=== PATIENT | female | born 1965 | race Caucasian/White ===

== ENCOUNTER 2018-01-22 11:23 | Day surgery (SDC) | payer OTHER ==
[2018-01-18 10:23] VITALS: BMI 18.1
--- NOTE | 2018-01-21 08:51 | HP ---
Admitting History and Physical - Primary Care Physician PCP: Hailee Zimmer - Admission Chief Complaint: right breast LCIS History of Present Illness: 52 yo female was noted to have left breast calcifications and a new right .7 cm mass for which an US core bx was being recommended. The US core bx done 2017 was c/w LCIS. During the biopsy, a clip was not placed but a repeat US done 12/06/2017 was able to re identify the lesion. Patient is presenting for right breast exc bx with NL. History Source: Patient Limitations to Obtaining History: No Limitations - Past Medical History ...LMP Comment: 2016 ...: No Additional Past Medical History: insomnia herpes - Past Surgical History Additional Past Surgical History: Knee surgery sec to MCL repair at 16 - Smoking History Smoking history: Never smoked Have you smoked in the past 12 months: No Aproximately how many cigarettes per day: 0 - Alcohol/Substance Use Hx Alcohol Use: Yes (SEVERAL TIMES PER WEEK) Home Medications - Allergies Allergies/Adverse Reactions: Allergies Allergy/AdvReac Type Severity Reaction Status Date / Time No Known Allergies Allergy Verified 01/18/18 10:16 - Home Medications Home Medications: Ambulatory Orders Clonazepam [Klonopin] 1 mg PO HS 01/18/18 Multivitamin [Multiple Vitamins] 1 each PO DAILY 01/18/18 [place]-3 Fatty Acids/Fish Oil [Fish Oil 1,000 mg Capsule] 1 each PO DAILY Family Disease History - Family Disease History Other Family History: maternal aunt-pancreatic cancer at 70 Review of Systems - Review of Systems Constitutional: reports: No Symptoms Cardiovascular: reports: No Symptoms Respiratory: reports: No Symptoms Physical Examination Constitutional: Yes: Well Nourished Breast(s): Yes: Other (Breasts are symmetrical, dense and nodular without suspicious masses.) Problem List - Problems (1) Lobular carcinoma in situ (LCIS) of right breast Code(s): D05.01 - LOBULAR CARCINOMA IN SITU OF RIGHT BREAST Assessment/Plan Plan: Right breast wide excision with NL
[2018-01-22 12:00] VITALS: TEMP 97.6
[2018-01-22] MEDS ORDERED: LIDOCAINE HCL 1%, 10 MG/ML (20ML VIAL) ONE (14:40)
[2018-01-22] MEDS ORDERED: BUPIVACAINE HCL/PF 2.5 MG/ML - 30 ML VIAL IJ ONE (15:24)
[2018-01-22] MEDS ORDERED: ONDANSETRON 4 MG/2 ML VIAL IVPUSH PRN ×2 (15:55→15:57)
[2018-01-22] MEDS ORDERED: PROMETHAZINE HCL 25 MG/1 ML VIAL IVPUSH PRN (15:57)
[2018-01-22] MEDS ORDERED: oxyCODONE HCL 5 MG TABLET PO PRN ×2 (15:57)
[2018-01-22] MEDS ORDERED: DEXTROSE 5%-0.45% SALINE 1,000 ML IV SCH (16:00)
[2018-01-22 16:38] VITALS: BP 100/63; PULSE 54
[2018-01-22] MEDS ORDERED: KETOROLAC TROMETHAMINE 30 MG/1 ML VIAL IVPUSH ONE (16:45)
--- NOTE | 2018-01-22 20:29 | OP ---
DATE OF OPERATION: 01/22/2018 PREOPERATIVE DIAGNOSIS: Right breast atypia. POSTOPERATIVE DIAGNOSIS: Right breast atypia. PROCEDURE: Right breast wide excision with needle localization. SURGEON: Hailee Zimmer MD LUMBER CHECKER: EPI Wood ANESTHESIA: General. ANESTHESIOLOGIST: Nate Mendoza MD SPECIMEN: Right breast tissue. ESTIMATED BLOOD LOSS: Minimal. DRAINS: None. INDICATION FOR PROCEDURE: The patient is a 52-year-old woman who had a mammogram showing dense breast. Ultrasound showed a new 7-mm mass in the right breast at 8 o'clock. Ultrasound-guided biopsy showed LCIS. Excision was recommended. She is going to the operating room for the procedure. The procedure, risks and complications were discussed with her prior to surgery. The patient was taken to breast imaging, where the mass in the right breast was localized. She was then taken to the ambulatory surgical unit. Informed consent was obtained. The right breast was marked with a marker. DESCRIPTION: She was taken to the operating room and placed on the operating table in the supine position. She was sedated. The breast was infiltrated with 1% lidocaine. The patient was somewhat agitated so the procedure was converted to general anesthesia with a laryngeal airway. An incision was made at the periareolar border. The incision was deepened and the tip of the needle was palpated. The needle was grasped with a clamp and the tissue around the needle was from the surrounding breast parenchyma. The needle was disassembled and the specimen was removed. It was labeled with a long lateral and a short superior stitch. The specimen was then placed in formalin and sent to Pathology. The wound was inspected for hemostasis. Once hemostasis was satisfactory, the incision was infiltrated with 0.25% Marcaine. The deep tissue was approximated with interrupted sutures of 3-0 Vicryl. The dermis was closed with interrupted sutures of 3-0 Vicryl. The skin was closed with a running subcuticular closure of 4-0 Monocryl. The wound was cleaned and dressed with Steri-Strips and a sterile gauze dressing. It was covered with gauze and Tegaderm. A surgical bra was then placed. The patient was awakened and taken to the PACU in satisfactory condition. Cindy [id number]
--- NOTE | 2018-01-25 16:48 | PATH ---
Surgical Pathology Report Patient Name: DENNIS ARGUETA [facility]. Rec. #: [id number] /Age/Gender: 1965 (Age: 52) / F Account: [id number] Location: PENDING SALE TO [facility] Taken: 01/22/2018 Received: 01/22/2018 Reported: 01/25/2018 Physicians: Hailee Zimmer M.D. Specimen(s) Received BREAST MASS Clinical History None given Final Diagnosis BREAST, RIGHT, WIDE EXCISION: LOBULAR CARCINOMA IN SITU (LCIS), CLASSICAL TYPE. PROLIFERATIVE FIBROCYSTIC CHANGES INCLUDING STROMAL FIBROSIS, MICROCYSTS, CYSTIC APOCRINE METAPLASIA, SCLEROSING ADENOSIS, USUAL DUCTAL HYPERPLASIA, AND COLUMNAR CELL CHANGES. Comment: Immunohistochemical stains performed and interpreted at [facility] show the tumor is negative for E-Cadherin stain, supportive of lobular phenotype. Myoepithelial markers (smooth muscle myosin heavy chain and p63) are positive within the areas of sclerosing adenosis. Electronically Signed Fadia Roman M.D. Gross Description Received fresh labeled "right breast wide excision," is a 2.6 x 2.4 x 1.4 cm portion of fibroadipose tissue with a short suture marking the superior aspect and a long suture marking the lateral aspect of the specimen, per the surgeon. There is a needle localization wire separately received within the same container which appears to have detached from the specimen. There is no skin or nipple present. The specimen is inked as follows: Superior and lateral blue; inferior green; medial yellow; anterior red; deep black. The specimen is serially sectioned from superior inferior. Sectioning reveals foci of hemorrhage surrounded by white fibrous tissue. No definitive mass is identified. Separately received within the same container is a 1.0 x 0.6 x 0.3 cm unoriented portion of fibroadipose tissue. The specimen is inked blue and serially sectioned. Sectioning reveals diffuse dense white, firm fibrous tissue. No definitive mass is identified. The specimen is entirely embedded in 8 cassettes as follows: 5-1-dbagsetl and sequentially submitted larger specimen (superior margin in cassette 1, inferior margin in cassette 7); 8-separately received smaller portion of tissue. Total formalin fixation time: Approximately 27 hours /01/23/201801/23/2018
== END 2018-01-22 16:50 | disposition home or self-care (01) ==
LOC: FASU 11:23
PROVIDERS: ATTEND Surgery
PROC: 0HBT0ZX Excision of Right Breast, Open Approach, Diagnostic (ICD-10-PCS; principal; 2018-01-22 15:00)
DX: N60.91 Unspecified benign mammary dysplasia of right breast (principal); D05.02 Lobular carcinoma in situ of left breast; N60.32 Fibrosclerosis of left breast; N60.12 Diffuse cystic mastopathy of left breast; N60.22 Fibroadenosis of left breast; N60.82 Other benign mammary dysplasias of left breast
CPT/HCPCS: 19281; 88307-TC; 88341-TC; 88342-TC; 94760